=== PATIENT | female | born 1930 | race Two or more races ===

== ENCOUNTER 2017-11-14 01:36 | Day surgery (SDC) | payer MEDICARE, OTHER ==
[~2017-11-14] VITALS: Ht 152.4 cm; Wt 76.7 kg
[~2017-11-14 01:36] MED LIST: ASCO-182 PO; ASPI-1471 PO; CALC-29 PO; FERR-53 PO; GABA-549 PO; GLUC1TAB13 PO; NAPR220C12 PO; TETR15DR9 OP; VITA200C8 PO
[2017-11-14 05:28] VITALS: BP 146/70
[2017-11-14] MEDS ORDERED: ceFAZolin(*) 1 GM VIAL 1 GM in NS(*) 0.9% 100 ML ADDVANT BAG 100 ML IV ONE (06:00)
[2017-11-14] MEDS ORDERED: LIDOCAINE/SOD BICARB 8.4% SYR ID ONE (06:00)
[2017-11-14] MEDS ORDERED: CELECOXIB 200 MG CAP PO ONE (06:00)
[2017-11-14] MEDS ORDERED: FAMOTIDINE 20 MG TAB PO ONE (06:00)
[2017-11-14] MEDS ORDERED: MIDAZOLAM 2 MG/2 ML VIAL IVP PRN (06:00)
[2017-11-14] MEDS ORDERED: NORMOSOL R SOLN(*) 1000 ML BAG 1,000 ML IV PRN (06:00)
[2017-11-14] MEDS ORDERED: ROPIVACAINE 0.2% 20 ML VIAL ONE (06:18)
[2017-11-14] MEDS ORDERED: PROPOFOL EMUL(*) 10MG/ML 20 ML 20 ML ONE (06:20)
[2017-11-14] MEDS ORDERED: LIDOCAINE MPF 1% 5 ML VIAL ONE (06:20)
[2017-11-14] MEDS ORDERED: DEXAMETHASONE SOD PHOS 10MG/ML ONE (06:20)
[2017-11-14] MEDS ORDERED: ONDANSETRON 4 MG/2 ML VIAL ONE (06:20)
[2017-11-14] MEDS ORDERED: MIDAZOLAM 2 MG/2 ML VIAL ONE (06:21)
[2017-11-14] MEDS ORDERED: fentaNYL CITR 100 MCG/2 ML AMP ONE ×3 (06:21→09:57)
[2017-11-14] MEDS ORDERED: LIDOCAINE 2% JELLY 5 ML TUBE ONE (06:59)
[2017-11-14] MEDS ORDERED: METOPROLOL TART 5 MG/5 ML VIAL ONE (07:27)
[2017-11-14] MEDS ORDERED: PER PO (09:36)
[2017-11-14 10:40] VITALS: BP 152/88
[2017-11-14 10:46] VITALS: BP 122/70
[2017-11-14 11:40] VITALS: BP 120/76
--- NOTE | 2017-11-14 17:55 | OPERATIVE REPORT 1 ---
EVENT DATE: November 14, 2017 SURGEON: Florentin Chaudhry MD ANESTHESIOLOGIST: Marco A Rai MD ANESTHESIA: General LMA. 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 PROCEDURE PERFORMED Open reduction, internal fixation of a right distal radius nonunion with bone graft. 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 ESTIMATED BLOOD LOSS About 50 mL secondary to using a tourniquet. DRAINS None. COMPLICATIONS None. IMPLANTS USED [employer] distal radius plate which was the long, narrow right specific distal radius plate. SPECIMENS None. TOURNIQUET TIME About 105 minutes. INDICATIONS AND HISTORY This patient is an 87-year-old female who presented to my clinic for evaluation of a right radial nonunion. She had initially broken the wrist last fall and then put in an external fixator and then also a cast and a brace. Unfortunately , this failed to go on to a union. She continued to have gross motion associated with the fracture site, and it was not able to be functional for her hand, and so therefore she continued to have pain and problems associated with it. She wanted to go ahead with an open reduction, internal fixation of a nonunion today, November 14, 2017. 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 She said she understood this. Prior to the procedure, I went over the risks and benefits, and informed consent was obtained at the last clinic visit. DESCRIPTION OF PROCEDURE This patient was brought into the operating room. She and the procedure were both verified. She was placed supine on the operating table and induced and intubated by Anesthesia. The right upper extremity was then prepped and draped in the usual fashion, and a timeout was observed verifying the correct patient and procedure. The standard incision was made over the volar Bird approach, taken through the skin and subcutaneous tissue right over the flexor carpi radialis. Once I was able to get through the flexor carpi radialis, I was then able to dissect below it and verify that we were down to the fracture site itself, and then I identified the nonunion itself. Once I was able to clear out the soft tissue off the nonunion, she had kind of a soft tissue callus around this area, but there was gross movement between the two fragments. I then was able to preliminarily reduce them and then put the long [employer] right narrow four-hole plate onto the distal fragment. This was done by first initially pinning the fragment in place and then pinning it to the distal aspect once we had it lined up with the joint surface itself. I was then able to put four screws distally into the plate itself in order to preliminarily reduce it. Unfortunately, we were not able to get the complete volar tilt back, but we were able to restore it back to almost neutral, and so therefore this was accepted secondarily to due to the prior fracture that was intra-articular. It was not necessary to take this down as this would have been too much for the bone and probably would not have survived the procedure. Once I got the four holes in the distal aspect, I was then able to preliminarily reduce the shaft back to the proximal radial portion. Once I was able to identify the proximal radial portion and get it back to this area, I was then able to screw this in place through the oblong hole and then squeeze the fracture together in order to reduce it completely. I then was able to put three more screws proximally, so a total of four with locking screws on the most distal shaft screw and the most proximal shaft screw. All these were then held in place. We took x-ray images with the C-arm and then were able verify the one locking screw did not sit down completely onto the ulnar side of the radius, so we replaced this with a variable angle screw on that ulnar side. Once I was able to do this, we then took final pictures showing that the radius was in much better position. We then were able to irrigate with copious amounts of saline, and then final pictures were taken verifying that we had reduced the radius itself and had good fixation associated with it. I then put in the [place] bone graft after irrigation within the fracture nonunion site itself to try to induce healing in the union aspect of this. I was then able to close the musculature over the plate itself with 3-0 Vicryl in an interrupted fashion. This was then followed by 3-0 Vicryl in the subcutaneous tissue and then a 4-0 nylon in the skin with an interrupted mattress-type stitch. The wound was then anesthetized with ropivacaine, then dressed with Xeroform gauze, 4 x 4's, and a soft dressing, and then the patient was awakened, extubated, and transferred to PACU in stable condition after a hard splint was put on her wrist. The tourniquet was let down after about 105 minutes. ALLEGRA
== END 2017-11-14 10:42 | disposition home or self-care (01) ==
LOC: OR 01:36
PROVIDERS: ATTEND Orthopaedic Surgery
DX: S52.501A Unspecified fracture of the lower end of right radius, initial encounter for closed fracture (principal)
CPT/HCPCS: 25400; A9270; J0690; J1100; J2001; J2405; J2704; J2795; J3010; J3490; J7050; A4565; J2250